=== PATIENT | male | born 1985 | race Caucasian/White ===

== ENCOUNTER 2023-04-28 13:26 | Emergency (ER) | payer BC, SELFPAY ==
[2023-04-28] VITALS (11 sets, daily range): BP systolic 131–152; BP diastolic 74–103; PULSE 97–128; RESP 16–20; TEMP 36.7; O2SAT 95–97; BMI 28.1
--- NOTE | 2023-04-28 14:07 | ED_ITS ---
HPI - General Adult General Date Seen: 04/28/23 Chief complaint: Alcohol/Intoxication Stated complaint: ETOH Time Seen by Provider: 04/28/23 13:27 History of Present Illness HPI narrative: This is a 37-year-old male brought to the ER today by his family with concern for alcohol abuse and alcohol intoxication. History is obtained in part from the patient and in large part from his who is at his bedside. It sounds like he has a long history of alcohol abuse. He had been through treatment in the end of February. It sounds like when he went through withdrawal that time he had symptoms of sweats, nausea and vomiting, goosebumps but no serious withdrawal symptoms such as seizures, hallucinations, or delirium tremens. It sounds like while he was in a treatment center they did put him on a medicine for anxiety (possibly a benzodiazepine? ). He seemed a little bit drowsy that week, and is unsure if it is because of the withdrawal, or if he was secretly drinking, or from the medicine. It sounds like he has been drinking again for the past several weeks. Unclear how much he drinks every day. The patient and his family have already made plans for him to enter back into an inpatient treatment center and that is scheduled for Wednesday morning, 2 days from now. They have taken all the alcohol out of his house and he barely broken his phone so we cannot order more. Despite that he has been drinking. He apparently went into their neighbor's home yesterday and again this morning to get alcohol from the neighbor's house. The neighbors called police because of the intrusion. Apparently the patient was contacted by [facility] police. He was intoxicated. He had a 0.35 on the breath test. Please told them that he could either come to the ER for treatment or go to shelter. It sounds like they chose to come here instead. Patient has no complaints. He says he will not drink anymore anyone break into the neighbor's house. He is minimizing his pattern of behavior. His is concerned that he is probably dehydrated. She would like us to give him some IV fluids. She says she will not bring him back into their home until he has been through treatment. The patient's has been in contact with his mother and her father to help, but the plan for the patient between today and when he is scheduled to enter into treatment on Wednesday. He may be going home with his mother today. No other complaints. No known injury or trauma or assault. Patient has no history of liver disease or cirrhosis. No other medical conditions. Related Data Home Medications Medication Instructions Recorded Confirmed escitalopram oxalate 10 mg tablet 10 mg PO DAILY 04/28/23 04/28/23 propranolol 20 mg tablet PO 04/28/23 Previous Rx's Medication Instructions Recorded lorazepam 1 mg tablet (Ativan) 1 mg PO Q6H PRN alcohol withdrawal 04/28/23 #10 tabs ondansetron 4 mg disintegrating 4 mg PO Q8H PRN nausea and 04/28/23 tablet vomiting #10 tabs Allergies Allergy/AdvReac Type Severity Reaction Status Date / Time No Known Drug Allergies Allergy Verified 04/28/23 13:42 Review of Systems Narrative: limited except as estiven PFS PFS Social History Smoking Status: Never smoker Do you use any of these nicotine containing products: None How often do you have a drink containing alcohol: 4 or more times a week AUDIT-C Alcohol total score: 4 Non-prescribed substance use: denies use Exam Narrative: Exam Narrative: Constitutional: Appears well-developed and well-nourished. Alert. He has hair is disheveled but he is dressed in clean. He appears to be clinically intoxicated with alcohol. Speech is mildly slurred but actually he is more sober than you might expect for an alcohol of 0.35. HENT: Head: Atraumatic. Nose: Nose normal. Mouth/Throat: Oral mucosa is clear but slightly dry, not desiccated or cracked. no trismus. Pharynx normal. Tonsils symmetric. No tonsillar enlargement, erythema, or exudate. Eyes: Conjunctivae normal. EOM normal. Pupils equal, round, and reactive to light. No scleral icterus. Neck: Normal range of motion. Neck supple. No tracheal deviation present. Cardiovascular: Normal rate, regular rhythm. No gallop. No friction rub. No murmur heard. Symmetric radial artery pulses Pulmonary/Chest: Effort normal. No stridor. No respiratory distress. No wheezes. No rales. No rhonchi . No tenderness. Abdominal: Soft. Bowel sounds normal. No distension. No hepatosplenomegaly. No mass. No tenderness. No rebound. No guarding. Musculoskeletal: RUE: Normal range of motion. No tenderness. No deformity LUE: Normal range of motion. No tenderness. No deformity RLE: Normal range of motion. No edema. No tenderness. No deformity LLE: Normal range of motion. No edema. No tenderness. No deformity Neurological: Alert and oriented to person, place, and time. Normal strength. CN II-VII intact. No sensory deficit. GCS eye subscore is 4. GCS verbal subscore is 5. GCS motor subscore is 6. Normal coordination Skin: Skin is warm and dry. No rash noted. No pallor. Normal capillary refill. Psychiatric: Patient has a pattern of heavy alcohol abuse over the past few weeks, as above. His is supportive but no longer willing to be codependent with him. He is not depressed or suicidal. He is endorsing is plan to avoid alcohol in going to treatment. Const: Vital Signs, click to edit/add: Vital Signs - 24 hr 04/28/23 13:43 04/28/23 14:50 04/28/23 15:00 Temperature 98.1 F Pulse Rate 98 99 Pulse Rate [Right Pulse Oximeter] 128 H Respiratory Rate 16 Blood Pressure Blood Pressure [Le ft Arm] Blood Pressure [Ri ght Upper Arm] 138/85 Pulse Oximetry 96 95 96 Oxygen Delivery Me thod Room Air 04/28/23 15:02 04/28/23 15:03 04/28/23 15:30 Temperature Pulse Rate 103 H 101 H 97 Pulse Rate [Right Pulse Oximeter] Respiratory Rate Blood Pressure 152/84 H Blood Pressure [Le ft Arm] Blood Pressure [Ri ght Upper Arm] Pulse Oximetry 97 96 96 Oxygen Delivery Me thod 04/28/23 15:31 04/28/23 16:59 04/28/23 17:00 Temperature Pulse Rate 99 121 H Pulse Rate [Right Pulse Oximeter] Respiratory Rate Blood Pressure 137/74 Blood Pressure [Le ft Arm] 131/98 H Blood Pressure [Ri ght Upper Arm] Pulse Oximetry 95 96 Oxygen Delivery Me thod 04/28/23 17:00 04/28/23 17:01 04/28/23 20:10 Temperature Pulse Rate 120 H Pulse Rate [Right Pulse Oximeter] 114 H Respiratory Rate 20 Blood Pressure 131/98 H Blood Pressure [Le ft Arm] Blood Pressure [Ri ght Upper Arm] 152/103 H Pulse Oximetry 96 97 Oxygen Delivery Me thod Room Air Course Vital Signs Vital signs: Initial Vital Signs Temperature 98.1 F 04/28/23 13:43 Temperature Source Temporal Artery Scan 04/28/23 13:43 Pulse Rate 128 H 04/28/23 13:43 Pulse Rhythm Regular 04/28/23 13:43 Respiratory Rate 16 04/28/23 13:43 Blood Pressure 138/85 04/28/23 13:43 Blood Pressure Mean 102 04/28/23 13:43 Blood Pressure Position Sitting 04/28/23 13:43 Pulse Oximetry 96 04/28/23 13:43 Oxygen Delivery Method Room Air 04/28/23 13:43 Vital Signs Temperature 98.1 F 04/28/23 13:43 Pulse Rate 128 H 04/28/23 13:43 Respiratory Rate 16 04/28/23 13:43 Blood Pressure 138/85 04/28/23 13:43 Pulse Oximetry 96 04/28/23 13:43 Oxygen Delivery Method Room Air 04/28/23 13:43 Temperature 98.1 F 04/28/23 13:43 Pulse Rate 114 H 04/28/23 20:10 Respiratory Rate 20 04/28/23 20:10 Blood Pressure 152/103 H 04/28/23 20:10 Pulse Oximetry 97 04/28/23 20:10 Oxygen Delivery Method Room Air 04/28/23 20:10 Medical Decision Making MDM Narrative Medical decision making narrative: 37-year-old male with a history of alcoholism is brought to the ER today by his family with concern for alcohol intoxication and need for detox. 1. Laboratory workup here shows no significant hypokalemia, hypomagnesemia or dangerous LFT abnormalities. He does have mildly abnormal transaminases consistent with alcohol abuse. No evidence for cirrhosis. Bilirubin normal. He is not having any abdominal pain or distention to suggest ascites. Other laboratory workup reassuring. 2. He was clinically intoxicated with alcohol and this correlates with his alcohol level of 0.29 (actually had 0.35 on his Breathalyzer for police prior to arrival). Patient is not displaying any signs of alcohol withdrawal at this time. Would be at risk for withdrawal as he chase up and over the next couple of days. He and his family have already made a plan for him to enter into an alcohol treatment program 2 days from now on Wednesday ([facility] in [place], [place]). His family are not willing to have him come back to their home today. They just do not feel comfortable keeping him safe. He has violated their trust in the past by sneaking alcohol not looking. In fact the police were called today because he was over at the neighbor's house taking alcohol from them. His , his mother, his father in law agree that they will not take him home. They are trying to encourage him to enter into a detox facility. The patient does not want to go to detox. He Was discussed with the patient and his family that while he is intoxicated he has to stay here in the ER or in a monitored setting (or could go home if he had a sober adult who would monitor him). In this case he does not have a sober adult and so cannot go home until he is clinically sober. His family will not bring him home today. Therefore will monitor here in the ER until clinically sober. At 5:30 p.m. I was notified that he was having increasing anxiety. CIWA was 9. Ativan IV ordered. Recheck at 6:20 pm. revealed significant improvement he was calm, restful. He was feeling mildly hungry. We will get him a meal. Still signs of mild intoxication but clinically more sober than when he arrived. Mother is at his bedside. Recheck at 7:00 p.m.. Sleeping. Resting easily in bed. recheck 2020- doing well. tolerating PO. no slurred speech. gait steady. cat is back and willing to take him home. discussed risks of WD, precautions for return. Rx for ativan, zofran. Lab Data Labs: Lab Results 04/28/23 Range/Units 14:22 WBC 13.50 H (4.50-11.00) K/uL RBC 5.43 (4.30-5.90) m/uL Hgb 16.4 (13.5-17.5) gm/dL Hct 46.1 (37.0-53.0) % MCV 85 (80-100) fL MCH 30 (26-34) pg MCHC 36 (32-36) gm/dL RDW Coeff of Nikole 12.2 (11.5-15.5) % Plt Count 268 (140-440) K/uL Neut % (Auto) 87.3 H (42.0-72.0) % Lymph % (Auto) 9.5 L (20-44) % [place] % (Auto) 3.0 (0.0-11.0) % Eos % (Auto) 0.0 (0.0-7.0) % Baso % (Auto) 0.1 (0.0-3.0) % Neut # (Auto) 11.80 H (1.7-7.0) K/uL Lymph # (Auto) 1.30 (0.90-2.90) K/uL [place] # (Auto) 0.40 (0.00-0.90) K/UL Eos # (Auto) 0.00 (0.00-0.50) K/uL Baso # (Auto) 0.00 (0.00-0.30) K/uL Abs Immat Gran (auto) 0.00 (0.00-0.30) K/uL Imm/Tot Granulo (auto) 0.1 % Sodium 141 (135-149) mmol/L Potassium 4.4 (3.6-5.1) mmol/L Chloride 103 (96-114) mmol/L Carbon Dioxide 21 (20-32) mmol/L BUN 17 (5-24) mg/dL Creatinine 1.1 (0.5-1.5) mg/dL Estimated Creat Clear 92.84 Estimated GFR 89 ml/min Glucose 105 (60-115) mg/dL Calcium 8.5 (8.4-10.6) mg/dL Magnesium 1.9 (1.5-2.6) mg/dL Total Bilirubin 1.0 (0.1-1.5) mg/dL AST 84 H (12-35) U/L ALT 60 H (4-50) U/L Alkaline Phosphatase 118 (40-150) U/L Total Protein 8.2 (6.0-8.3) g/dL Albumin 4.8 (3.3-5.0) g/dL Ethyl Alcohol 0.29 H (0.01-0.03) % Discharge Plan Discharge Clinical Impression: Alcoholic intoxication Instructions: Abuse of Alcohol (ED), Alcohol Withdrawal (DC) Additional Instructions: Please try to abstain from alcohol. Be sure to go to your scheduled treatment on Wednesday. If you have any concerns especially worsening anxiety, shakes or tremors, nausea and vomiting, seizures, hallucinations, or any other concerns return to the ER right away. Prescriptions: New lorazepam [Ativan] 1 mg tablet 1 mg PO Q6H PRN (Reason: alcohol withdrawal) Qty: 10 0RF ondansetron 4 mg tablet,disintegrating 4 mg PO Q8H PRN (Reason: nausea and vomiting) Qty: 10 0RF No Action propranolol 20 mg tablet PO escitalopram oxalate 10 mg tablet 10 mg PO DAILY Follow Up/Referrals: Provider,Not a Local [Primary Care Provider] -
[2023-04-28] MEDS: 0.9 % SODIUM CHLORIDE 1000 ml 1,000 ML IV (14:33)
[2023-04-28 14:35] LABS: Basophils Percent Auto 0.1 % (0.0-3.0); Hematocrit 46.1 % (37.0-53.0); Hemoglobin* 16.4 gm/dL (13.5-17.5); Immature Granulocytes Pct Auto 0.1 %; Lymphocytes Percent Auto 9.5 % (20-44); Mean Corpuscular HGB Conc 36 gm/dL (32-36); Mean Corpuscular Hemoglobin 30 pg (26-34); Mean Corpuscular Volume 85 fL (80-100); Neutrophils Percent Auto 87.3 % (42.0-72.0); Platelet Count* 268 K/uL (140-440); RDW Coefficient of Variation % 12.2 % (11.5-15.5); Red Blood Count 5.43 m/uL (4.30-5.90)
[2023-04-28 14:36] LABS: Slide Review Reflex No
[2023-04-28 14:51] LABS: Albumin* 4.8 g/dL (3.3-5.0); Chloride* 103 mmol/L (96-114)
[2023-04-28 14:52] LABS: Potassium* 4.4 mmol/L (3.6-5.1); Sodium* 141 mmol/L (135-149)
[2023-04-28 14:54] LABS: Aspartate Amino Transferase* 84 U/L (12-35); Carbon Dioxide* 21 mmol/L (20-32); Creatinine* 1.1 mg/dL (0.5-1.5); Est. Creatinine Clearance* 92.84; Estimated Glomerular Filt Rate 89 ml/min; Total Protein* 8.2 g/dL (6.0-8.3)
[2023-04-28 14:55] LABS: Alanine Aminotransferase* 60 U/L (4-50); Alkaline Phosphatase* 118 U/L (40-150); Blood Urea Nitrogen* 17 mg/dL (5-24); Calcium* 8.5 mg/dL (8.4-10.6); Glucose* 105 mg/dL (60-115); Magnesium* 1.9 mg/dL (1.5-2.6)
[2023-04-28 14:56] LABS: Ethanol* 0.29 % (0.01-0.03)
[2023-04-28] MEDS: LORazepam 2 MG/ML inj IVP (17:41)
--- NOTE | 2023-04-28 18:05 | ED.NURSE ---
spent time (30-45) with pt talking about identifying trigger for anxiety, and identifying positive coping skills
--- NOTE | 2023-04-28 19:53 | PC.NURSE ---
patient visualized on monitor for safety. MD in room at this time assessing patient, patient alert and awake.
[2023-04-28] MEDS: LORazepam 1 MG TABLET PO (20:00)
--- NOTE | 2023-04-28 20:02 | PC.NURSE ---
patient given timmy. patient given portable phone to call mom
--- NOTE | 2023-04-28 20:51 | PC.NURSE ---
patient DC with mother, mother able to keep patient in her home until he can go to treatment on wednesday. mom and patient stated understanding to DC instructions
== END 2023-04-28 20:56 | disposition home or self-care (01) ==
PROVIDERS: Emergency Provider Emergency Medicine
DX: F10.129 Alcohol abuse with intoxication, unspecified (principal)
CPT/HCPCS: 36415; 80053; 82077; 83735; 85025; 96361; 96374; 99284; A9270; J2060; J7030

== ENCOUNTER 2023-07-05 10:05 | Emergency (ER) | payer BC, SELFPAY ==
[2023-07-05 10:20] VITALS: BP 147/89; PULSE 118; RESP 18; TEMP 36.7; O2SAT 99
--- NOTE | 2023-07-05 12:45 | PC.NURSE ---
spoke to pt Sharmaine Ruvalcaba , she is wanting pt committed, has been making suicidal comments to family and friends calling and saying goodbye to others, called [facility] and reported him as a vulnerable adult today, he is currently in outpatient treatment for chem dep/ETOH through [place], they have inpatient options for him but he must be committed, Sharmaine's phone [phone]
--- NOTE | 2023-07-05 14:07 | ED_ITS ---
HPI - General Adult General Chief complaint: Psychiatric Problem/Disorder Stated complaint: Needs physical for work clearance Time Seen by Provider: 07/05/23 12:35 History of Present Illness HPI narrative: This 37-year-old male comes in with his father. Initially he is stating that he just wants a physical so that he can return to work. He was instructed by the nurses that we do not do history and physicals in the emergency department. The patient was going to leave but then his father insisted that he stay here. Meanwhile a phone call came from the patient's stating that she is concerned about his mental health as he is abusing alcohol and had been in treatment but has relapsed. She states that he has made comments several times about ending his life. I spoke with the patient's father privately who states that he and his for concerned that he may drink himself to . He was in a outpatient program in [place] and using alcohol at the same time. He was found sleeping under a tree this morning and had to court size bottles of hard alcohol that were mostly consumed. The patient is himself minimizing all these fax and began to be more honest when I pressed him with information received from his and his father. Currently he states everything is fine and he is denying any suicidality and simply wants a note to return to work. Related Data Home Medications Medication Instructions Recorded Confirmed escitalopram oxalate 10 mg tablet 10 mg PO DAILY 04/28/23 04/28/23 propranolol 20 mg tablet PO 04/28/23 gabapentin 300 mg capsule 300 mg PO 3XD 07/05/23 07/05/23 hydroxyzine HCl 25 mg tablet PO 07/05/23 Previous Rx's Medication Instructions Recorded lorazepam 1 mg tablet (Ativan) 1 mg PO Q6H PRN alcohol withdrawal 04/28/23 #10 tabs ondansetron 4 mg disintegrating 4 mg PO Q8H PRN nausea and 04/28/23 tablet vomiting #10 tabs Allergies Allergy/AdvReac Type Severity Reaction Status Date / Time No Known Drug Allergies Allergy Verified 04/28/23 13:42 Review of Systems Status of ROS: Reports: 10 or more systems reviewed and unremarkable except as noted in History and below Narrative: Constitutional: No fevers, no weight gain or loss. Eyes: No discharge. No vision changes. HENT: No congestion, no sore throat, no ear pain. Cardiovascular: No chest pain, no palpitations. Respiratory: No shortness of breath, no wheezes, no cough. Gastrointestinal: No abdominal pain, no vomiting, no diarrhea. Genitourinary: No dysuria, no hematuria. Musculoskeletal: Normal range of motion. Skin: No rashes, no pruritis. Neurological: No dizziness, weakness, sensory change, speech change. Endo/Heme/Allergies: No bruising or bleeding. No polydipsia. Pysch: no suicidality, no anxiety, no insomnia. All other systems reviewed and are negative. PFSH [facility] Social History Smoking Status: Never smoker Do you use any of these nicotine containing products: None Second hand tobacco smoke exposure: No How often do you have a drink containing alcohol: 4 or more times a week How many standard drinks containing alcohol do you have on a typical day: 10 or more How often do you have six or more drinks on one occasion: Daily or almost daily AUDIT-C Alcohol total score: 12 Non-prescribed substance use: denies use service: No Exam Narrative: Exam Narrative: Constitutional: Well-developed, well-nourished, no acute distress. HEENT: Normocephalic, atraumatic. Neck: Normal range of motion. Nontender. Supple. Heart: Regular. No murmurs. Tachycardia. Intact distal pulses. Lungs: Clear to auscultation. No chest discomfort. No wheezes, rhonchi, or rales. Abdomen: Normal bowel sounds. Nontender. No rebound tenderness. Genitalia: Deferred. Back: No midline tenderness. Normal range of motion. Extremities: Normal range of motion. No injury. Skin: Intact. No rash. Warm. No erythema or pallor. Neurologic: No altered sensation. No weakness. Alert and oriented. Psychiatric: The patient denies suicidality. He states his last drink was a day and half for 2 ago but he seems to be uncertain about this and by my assessment it seems that much of what he is saying is not true. Nursing notes and vitals signs are reviewed. Const: Vital Signs, click to edit/add: Vital Signs - 24 hr 07/05/23 10:20 Temperature 98.1 F Pulse Rate [Right Pulse Oximeter] 118 H Respiratory Rate 18 Blood Pressure [Ri ght Upper Arm] 147/89 H Pulse Oximetry 99 Oxygen Delivery Me thod Room Air Course Vital Signs Vital signs: Initial Vital Signs Temperature 98.1 F 07/05/23 10:20 Temperature Source Temporal Artery Scan 07/05/23 10:20 Pulse Rate 118 H 07/05/23 10:20 Respiratory Rate 18 07/05/23 10:20 Blood Pressure 147/89 H 07/05/23 10:20 Blood Pressure Mean 108 H 07/05/23 10:20 Blood Pressure Position Sitting 07/05/23 10:20 Pulse Oximetry 99 07/05/23 10:20 Oxygen Delivery Method Room Air 07/05/23 10:20 Vital Signs Temperature 98.1 F 07/05/23 10:20 Pulse Rate 118 H 07/05/23 10:20 Respiratory Rate 18 07/05/23 10:20 Blood Pressure 147/89 H 07/05/23 10:20 Pulse Oximetry 99 07/05/23 10:20 Oxygen Delivery Method Room Air 07/05/23 10:20 Temperature 98.1 F 07/05/23 10:20 Pulse Rate 118 H 07/05/23 10:20 Respiratory Rate 18 07/05/23 10:20 Blood Pressure 147/89 H 07/05/23 10:20 Pulse Oximetry 99 07/05/23 10:20 Oxygen Delivery Method Room Air 07/05/23 10:20 Medical Decision Making MDM Narrative Medical decision making narrative: This patient initially came in wanting a return to work physical. Information began to come from other family members that he is having significant trouble with alcohol abuse and has made suicidal comments recently. The patient initially denied all of this but does admit to using alcohol now. A tele health mental assessment is ordered along with labs for further information and options regarding going forward. His father states that he is close to drinking himself to as it is now getting cold at night and the patient was found lying under a tree this morning with a couple bottles of alcohol that were mostly consumed. I had discussion also with the patient's . Both of these people are very concerned and thinks that if he continues he could from his alcohol abuse. His blood alcohol level returns at 0.40. He was changed out of his clothes and a bottle of alcohol was found on him. He is denying and frequently lying about all these matters. Telehealth assessment was completed and the patient would definitely benefit from detox and treatment but he is not a candidate at this time for inpatient psychiatric treatment because of his alcohol intoxication. IA attempted to persuade the patient to go to detox or some hospitalization setting but he is declining this and states that he wants to be discharged. The patient's father and are not interested in taking him. When he was living with his father he broke into a neighbor's home and stool alcohol. When he was with his he did the same. The patient has received 2 doses of Ativan 1 mg over the course of his stay during my shift. He states that he has never had withdrawal symptoms. He seems rather functional despite being blood alcohol level of 0.4. The plan at this time is to let him sleep overnight and re-evaluate in the morning. Lab Data Labs: Lab Results 07/05/23 07/05/23 Range/Units 14:16 15:30 WBC 6.70 (4.50-11.00) K/uL RBC 4.76 (4.30-5.90) m/uL Hgb 14.6 (13.5-17.5) gm/dL Hct 41.3 (37.0-53.0) % MCV 87 (80-100) fL MCH 31 (26-34) pg MCHC 35 (32-36) gm/dL RDW Coeff of Nikole 12.4 (11.5-15.5) % Plt Count 224 (140-440) K/uL Neut % (Auto) 59.1 (42.0-72.0) % Lymph % (Auto) 34.0 (20-44) % [place] % (Auto) 6.6 (0.0-11.0) % Eos % (Auto) 0.1 (0.0-7.0) % Baso % (Auto) 0.1 (0.0-3.0) % Neut # (Auto) 3.95 (1.7-7.0) K/uL Lymph # (Auto) 2.28 (0.90-2.90) K/uL [place] # (Auto) 0.40 (0.00-0.90) K/UL Eos # (Auto) 0.01 (0.00-0.50) K/uL Baso # (Auto) 0.01 (0.00-0.30) K/uL Abs Immat Gran (auto) 0.01 (0.00-0.30) K/uL Imm/Tot Granulo (auto) 0.1 % Sodium 144 (135-149) mmol/L Potassium 3.3 L (3.6-5.1) mmol/L Chloride 102 (96-114) mmol/L Carbon Dioxide 30 (20-32) mmol/L Anion Gap 12 (7-15) mEq/L BUN 11 (5-24) mg/dL Creatinine 0.7 (0.5-1.5) mg/dL Estimated GFR 122 ml/min Glucose 121 H (60-115) mg/dL Calcium 8.4 (8.4-10.6) mg/dL Urine Opiates Screen Negative (Negative) Ur Oxycodone Screen Negative (Negative) Urine Methadone Screen Negative (Negative) Ur Propoxyphene Screen Negative (Negative) Acetaminophen < 10.0 L (10.0-30.0) ug/mL Ur Barbiturates Screen Negative (Negative) U Tricyclic Antidepress Negative (Negative) Ur Phencyclidine Scrn Negative (Negative) Ur Amphetamines Screen Negative (Negative) U Methamphetamines Scrn Negative (Negative) U Benzodiazepines Scrn Negative (Negative) Urine Cocaine Screen Negative (Negative) U Marijuana (THC) Screen Negative (Negative) Ur Drug Screen Comment See Note Ethyl Alcohol 0.40 H* (0.01-0.03) % Imaging Data CT scan - head: Radiologist's impression: 1. No skull fracture or acute intracranial hemorrhage identified. 2. Incidental left retrocerebellar arachnoid cyst. Discharge Plan Discharge Clinical Impression: Alcohol intoxication Prescriptions: No Action propranolol 20 mg tablet PO escitalopram oxalate 10 mg tablet 10 mg PO DAILY lorazepam [Ativan] 1 mg tablet 1 mg PO Q6H PRN (Reason: alcohol withdrawal) Qty: 10 0RF ondansetron 4 mg tablet,disintegrating 4 mg PO Q8H PRN (Reason: nausea and vomiting) Qty: 10 0RF gabapentin 300 mg capsule 300 mg PO 3XD hydroxyzine HCl 25 mg tablet PO Follow Up/Referrals: Provider,Not a Local [Primary Care Provider] -
--- NOTE | 2023-07-05 14:15 | ED.NURSE ---
Per Security, patient left room and exited ER through rear entrance towards [facility]. Security was able to talk patient back into going into room 3. Dr. Zhu informed of attempted elopement.
[2023-07-05 14:21] LABS: Basophils Absolute Auto 0.01 K/uL (0.00-0.30); Basophils Percent Auto 0.1 % (0.0-3.0); Eosinophils Absolute Auto 0.01 K/uL (0.00-0.50); Eosinophils Percent Auto 0.1 % (0.0-7.0); Hematocrit 41.3 % (37.0-53.0); Hemoglobin* 14.6 gm/dL (13.5-17.5); Immature Granulocytes Abs Auto 0.01 K/uL (0.00-0.30); Immature Granulocytes Pct Auto 0.1 %; Lymphocytes Absolute Auto 2.28 K/uL (0.90-2.90); Mean Corpuscular HGB Conc 35 gm/dL (32-36); Mean Corpuscular Hemoglobin 31 pg (26-34); Mean Corpuscular Volume 87 fL (80-100); Monocytes Percent Auto 6.6 % (0.0-11.0); Neutrophils Absolute Auto 3.95 K/uL (1.7-7.0); Neutrophils Percent Auto 59.1 % (42.0-72.0); Platelet Count* 224 K/uL (140-440); RDW Coefficient of Variation % 12.4 % (11.5-15.5); Red Blood Count 4.76 m/uL (4.30-5.90)
[2023-07-05 14:24] LABS: Slide Review Reflex No
[2023-07-05 14:37] LABS: Chloride* 102 mmol/L (96-114); Potassium* 3.3 mmol/L (3.6-5.1); Sodium* 144 mmol/L (135-149)
--- NOTE | 2023-07-05 14:37 | ED.NURSE ---
BH scrubs brought into patient room and instructions to change given to pt. Staff shut door to allow privacy to change. 1:[address] by this singer songwriter and security. Pt was seen lying on the floor in his room. Pt then stood up and began putting on his jacket. Security entered the room to guide pt to change into BH scrubs. Pt was agreeable. Security gave [id number] instructions for changing as pt was unable to follow directions well. 2 medication bottles were found on patient upon collection of his items. Pt was also found to have a bottle of vodka hidden behind the pillow in the pt's room by security. All items secured, inventoried, and taken to locked medication room for storage at this time.
[2023-07-05 14:40] LABS: Anion Gap 12 mEq/L (7-15); Blood Urea Nitrogen* 11 mg/dL (5-24); Carbon Dioxide* 30 mmol/L (20-32); Creatinine* 0.7 mg/dL (0.5-1.5); Estimated Glomerular Filt Rate 122 ml/min
[2023-07-05 14:41] LABS: Calcium* 8.4 mg/dL (8.4-10.6); Glucose* 121 mg/dL (60-115)
[2023-07-05 14:50] LABS: Acetaminophen* < 10.0 ug/mL (10.0-30.0)
--- NOTE | 2023-07-05 15:17 | ED.NURSE ---
Collected urine sample that pt reports leaving while in waiting room. Urine is clear and colorless with apparent bubbles. Sample brought down to lab to see if sample is truly urine or not. High suspicion that it may not be urine as it was not a witnessed urine sample and does not appear to be urine. Will await call back from lab prior to discussing sample with patient.
--- NOTE | 2023-07-05 15:30 | ED.NURSE ---
Received call back from lab. Sample was indeed, not urine. Pt informed that we know his sample was not urine. Pt given option of urinating with a staff member present to witness urine or possible discussion with provider for straight cath for urine. Pt opted to leave sample with security present in the room. Urine collected and taken to lab for analysis.
[2023-07-05 15:45] LABS: Amphetamine Screen Urine Negative (Negative); Barbiturate Screen Urine Negative (Negative); Benzodiazepines Screen Urine Negative (Negative); Cannabinoid Screen Urine Negative (Negative); Cocaine Screen Urine Negative (Negative); Methadone Screen Urine Negative (Negative); Methamphetamines Screen Urine Negative (Negative); Opiate Screen Urine Negative (Negative); Oxycodone Screen Urine Negative (Negative); Phencyclidine Screen Urine Negative (Negative); Tricyclic Antidepressant Urine Negative (Negative)
--- NOTE | 2023-07-05 16:05 | CRLHL7_ITS ---
For Patients: As a result of the Century Cures Act, medical imaging exams and procedure reports are released immediately into your electronic medical record. You may view this report before your referring provider. If you have questions, please contact your health care provider. INDICATION: Fall, intoxication TECHNIQUE: Noncontrast axial CT of the head. Coronal and sagittal reformats. Bone and soft tissue algorithms. COMPARISON: No relevant comparison studies available at this institution. FINDINGS: Bony calvarium appears grossly intact, without evidence of skull fracture. Incidental note is made of a left retro cerebellar, presumed arachnoid cyst within the posterior fossa, with smooth bony remodeling and thinning of the overlying calvarium. No acute intracranial hemorrhage or suspicious extra-axial fluid collection. No midline shift, hydrocephalus or herniation. Preserved godfrey-white matter differentiation. Normal white matter attenuation. Midline structures are unremarkable. Mild mucosal thickening throughout a few ethmoid air cells and the right sphenoid sinus. No paranasal sinus air-fluid level or mastoid effusion. Unremarkable orbits. IMPRESSION: 1. No skull fracture or acute intracranial hemorrhage identified. 2. Incidental left retrocerebellar arachnoid cyst. Please note that all CT scans at this facility use dose modulation, iterative reconstruction, and/or weight-based dosing when appropriate to reduce radiation dose to as low as reasonably achievable. Dictated by Kristin Loredo MD @ 07/05/2023 4:32:25 PM (Electronically Signed)
--- NOTE | 2023-07-05 16:23 | ED.NURSE ---
Pt was brought to [facility] for CT scan. While in on way to scan, pt ripped off his own wristband. Wristband at nurse's station for now.
--- NOTE | 2023-07-05 17:00 | ED.NURSE ---
This publications writer received call from [facility]. She notified this publications writer that in regards to commitment, the family will have to contact [facility] for guidance on how to have the patient committed. This publications writer notified dad, Cb, and , Sharmaine of this. Sharmaine received a phone call from [facility] and stepped away to speak with JAMES assramiroor. This publications writer had lengthy conversation with Cb regarding plan for the evening. Informed him patient would remain here overnight. Plan would be formulated using [facility] assessment to find most appropriate placement and plan for patient. All questions answered. Family would like a call with any updates regarding patient and if he is transferred tonight. This will be reported at shift change to next nurse if this publications writer's shift is done prior to discharge.
[2023-07-05] MEDS: LORazepam 1 MG TABLET PO ×2 (17:32→22:56)
--- NOTE | 2023-07-05 17:35 | ED.NURSE ---
Pt was restless in room. Security entered room to see if pt had any needs at this time. This documentation writer followed security to room to see what the patient's needs are. Pt began to question why he was here and when he could leave. This documentation writer entered the room and explained patient did not have a safe, sober ride that was willing to take him somewhere, that he did not have good decision making capabilities based on 0.4 RODRICK, and that we had to wait until our DEC sign erector was able to speak with the provider regarding the suicidal statements he made. Informed pt he would need to stay here overnight tonight for his own safety. Pt verbalized agreement with staying overnight. Pt requested medication to help with anxiety. Dr. Zhu notified and 1mg PO Ativan was ordered. Medication given as prescribed. Will continue to monitor pt and reassess anxiety after Ativan administration. 1:[address] in [address].
[2023-07-05] MEDS: MELATONIN 3 MG TABLET 6 MG PO (22:57)
[2023-07-06] MEDS: LORazepam 1 MG TABLET PO ×2 (06:33)
[2023-07-06 07:01] LABS: Ethanol* < 0.01 % (0.01-0.03)
--- NOTE | 2023-07-06 07:28 | ED.NURSE ---
patient ate breakfast and returned to sleeping in the bed. DEC called to stated 4 hours until able to reDEC but could be sooner.
[2023-07-06 08:48] VITALS: BP 136/93; PULSE 75; RESP 20; O2SAT 95
[2023-07-06 08:49] VITALS: PULSE 79; RESP 18; O2SAT 96
--- NOTE | 2023-07-06 08:58 | ED.NURSE ---
pt father was here, pt acting calmly and cooperative at this time. Pt is denying any feelings of having suicidal thoughts at this time.
--- NOTE | 2023-07-06 09:22 | ED.NURSE ---
DEC is in assessing pt. Pt is calm and cooperative at this time
--- NOTE | 2023-07-06 10:19 | ED.NURSE ---
Spoke with JAMES about pt disposition. JAMES's disposition plan for him is to go home with outpatient treatment. Spoke with pt father about this, father disagrees with the plan as he wants the pt to be on a hold and have inpatient treatment. Pt father was upset about the plan for pt, wanted to speak with the [place] county assessor. JAMES called the ER back, relayed that their plan for the pt has not changes regarding pt disposition after discharge. [place] county assessor stated he does not need inpt treatment for psych, but does recommend inpt treatment for substance abuse. JAMES does not have the ability to put pt on a hold. JAMES has spoken with pt father about this.
--- NOTE | 2023-07-06 10:39 | ED.NURSE ---
Per last note, MD has been notified on situation regarding pt father, and the pt discharge plan.
--- NOTE | 2023-07-06 11:20 | ED.NURSE ---
MD notified regarding pt father being upset with pt disposition. dining services director was consulted, as was a patient advocate for the pt regarding the situation for the pt disposition, and the family dynamic with the pt, and their concerns. dining services director gave pt resources, pt verbalized acceptance of these resources. spoke on phone with pt father.
--- NOTE | 2023-07-06 12:22 | ED.NURSE ---
medical and health services manager went in to pt room, and offered various amounts of resources for homelessness, substance use, therapy, etc.
--- NOTE | 2023-07-06 12:40 | ED.NURSE ---
Pt is calm and cooperative, is on the phone with his father at this time.
--- NOTE | 2023-07-06 17:21 | PC.SOCIAL ---
Social work: Late Entry: At MD request, called pt's father regarding d/c plan and offered resources for out-pt services. Father was not interested in receiving these resources and shared that he does not want pt discharged as he wants him to go straight to a substance treatment facility. Met with pt who states he wants to be discharged today. Pt states he plans to follow through with his psychiatrist who he has an appointment with today and that as long as he follows up on his anxiety issues, he will not have problems with drinking. 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 Pt states he is pleased with his psychiatry and therapist he has already in place and is not interested in information on other options for these services. Pt states he has been in substance treatment programs before and is familiar with options and the process to get into these programs. He accepted a list of in-pt and out-pt substance treatment programs in his area. Pt denies any concerns about his living situation. He states he needs to prove to his that he is going to accept help with his drinking prior to her letting him back in the house and expects this to take about a week. Pt states that during that time he can stay with his father or he also has finances to pay for a hotel if needed. Pt refused resources for housing access. Pt denies having any thoughts of hurting himself or others. Pt states he will call his father for a ride home. log pond worker received a voicemail from patient's requesting a call back to discuss his situation. Asked pt for permission to call back and pt refused.
== END 2023-07-06 13:00 | disposition home or self-care (01) ==
PROVIDERS: Family Medicine; Emergency Provider Emergency Medicine Emergency Medical Services
DX: F10.129 Alcohol abuse with intoxication, unspecified (principal)
CPT/HCPCS: 36415; 70450; 80048; 80143; 80306; 82077; 85025; 99284; A9270